=== PATIENT | male | born 1995 | race Native Hawaiian/Other Pacific Islander ===

== ENCOUNTER 2018-10-02 22:39 | Emergency (ER) | payer OTHER ==
[~2018-10-02] VITALS: Ht 167.6 cm; Wt 74.8 kg
[2018-10-02 23:46] VITALS: BP 132/73; TEMP 97.9
== END 2018-10-02 23:55 | disposition home or self-care (01) ==
LOC: ED 22:39
PROC: 08C1XZZ Extirpation of Matter from Left Eye, External Approach (ICD-10-PCS; principal; 2018-10-02)
DX: T15.82XA Foreign body in other and multiple parts of external eye, left eye, initial encounter (principal)
CPT/HCPCS: 99283